=== PATIENT | male | born 1965 | race Caucasian/White ===

== ENCOUNTER → 2020-07-26 08:30 | Outpatient (CLI) | payer BC, SELFPAY ==
--- NOTE | ~2020-07-26 | XR_ITS ---
XR lumbar spine 2-3V DATE: 07/26/2020 08:57 INDICATION: Low back pain with left lower extremity radiculopathy TECHNIQUE: AP, lateral, cone-down lateral lumbosacral views COMPARISON: None FINDINGS: There is diffuse osteopenia. There is mild levoscoliosis of the lumbar spine. No fracture or bone destruction or spondylolisthesis. The T12-L5 pedicles are intact. There is moderate degenerative disc disease of the lumbar spine, most prominent at L2-3 and L3-4. The sacroiliac joints are normal. IMPRESSION: Multilevel degenerative disc disease Reviewed, dictated and finalized at location B.
== END ==
PROVIDERS: PCP Physician Assistant; Visit Provider Physician Assistant
DX: M54.16 Radiculopathy, lumbar region (principal); M51.36 Other intervertebral disc degeneration, lumbar region
CPT/HCPCS: 72100

== ENCOUNTER → 2020-08-10 09:45 | Outpatient (CLI) | payer BC, SELFPAY ==
--- NOTE | ~2020-08-10 | MR_ITS ---
EXAMINATION: MR lumbar spine wo con DATE: 08/10/2020 10:29 INDICATION: Chronic low back pain. Left leg pain. TECHNIQUE: Magnetic resonance imaging (MRI) of the lumbar spine was performed without intravenous con trast. Sequences included sagittal T2-weighted FSE, sagittal T2-weighted FS FSE, sagittal T1-weighted FSE, and axial T2-weighted FSE. COMPARISON: Lumbar spine MRI 06/08/2017 FINDINGS: There is 7 degrees levocurvature of lumbar spine. There is 3 mm retrolisthesis of L2 on L3 and L3 on L4. There is a chronic left-sided L5 pars defect. There are Schmorl's nodes at multiple lev els. There is mild chronic height loss of L5 vertebral body. There is mildly decreased disc height fr om L2-L3 through L5-S1. The distal spinal cord signal intensity is normal. The conus medullaris is at L1-L2. The following disc levels are specifically discussed: L1-L2: The disc does not extend beyond the endplate margin. There is mild right and moderate left fac et joint osteoarthritis. There is no neural foraminal stenosis. There is no central canal stenosis. L2-L3: The disc is bulging and has an annular fissure. There is moderate right and mild left facet saroj int osteoarthritis. There is moderate right and mild left neural foraminal stenosis. There is mild ce ntral canal stenosis. L3-L4: The disc is bulging and has an annular fissure. There is mild bilateral facet joint osteoarthr itis. There is moderate right and mild left neural foraminal stenosis. There is mild central canal st enosis. L4-L5: The disc is bulging as an annular fissure. There is moderate bilateral facet joint osteoarthri tis. There is mild right and moderate left neural foraminal stenosis. There is mild central canal antelmo nosis. L5-S1: The disc is bulging and has an annular fissure. There is moderate right and severe left facet joint osteoarthritis. There is mild bilateral neural foraminal stenosis. There is mild central canal stenosis. IMPRESSION: 1. Moderate lumbar spondylosis, stable from 06/08/2017. 2. Chronic left L5 pars defect. Reviewed, dictated and finalized at location A.
== END ==
PROVIDERS: Visit Provider Physician Assistant
DX: M47.26 Other spondylosis with radiculopathy, lumbar region (principal)
CPT/HCPCS: 72148

== ENCOUNTER → 2021-10-07 07:23 | Outpatient (CLI) | payer BC, SELFPAY ==
--- NOTE | ~2021-10-07 | MR_ITS ---
EXAMINATION: MR knee LT wo con DATE: 10/07/2021 08:42 INDICATION: Left knee pain TECHNIQUE: Magnetic resonance imaging (MRI) of the left knee was performed without intravenous contra st. Sequences included coronal PD-weighted FSE, coronal PD-weighted FS FSE, sagittal T2-weighted FSE , sagittal PD-weighted FS FSE and axial PD weighted fat saturated FSE. COMPARISON: None. FINDINGS: Medial compartment: Complex tear extending along the inferior articular surface of the body and posterior horn of the med ial meniscus. This includes a couple displaced meniscal flaps. The larger meniscal flap originating f rom the posterior horn is flipped laterally and extends cephalad between the lateral margin of the ce ntral weightbearing medial femoral condyle and the posterior cruciate ligament. The second smaller me niscal flap extends cephalad from the meniscal body along side the medial margin of the anterior weig htbearing medial femoral condyle. There is prominent focal marrow edema in the adjacent medial femora l condyle which may represent stress reaction related to altered stress distribution resulting from t he meniscal flap. There is small amount of residual tearing along the inferior articular surface of t he nondisplaced portion of the body and posterior horn. Articular cartilage is normal. Lateral compartment: Lateral meniscus is normal. Articular cartilage is normal. Patellofemoral compartment: Small region of deep chondral fissuring with tiny focus of underlying increased marrow signal at the junction of the medial and odd patellar facets. Remainder of the cartilage in the patellofemoral comp artment is normal. Ligaments and tendons: Anterior and posterior cruciate ligaments are normal. The medial collateral ligament and fibular chantell ateral ligament complex are normal. The extensor mechanism is normal. The visualized medial and later al hamstring tendons as well as the iliotibial band are normal. Fluid: Physiologic amount of fluid in the joint space. No loose osteochondral bodies identified. Osseous/other: Normal marrow signal aside from the previously noted small foci of increased subarticular signal at t he patella and medial femoral condyle. No fracture or pathologic marrow replacing process. IMPRESSION: 1. Complex medial meniscal tear including a couple displaced meniscal flaps, one of which arising fro m the body appears to result in small region of likely stress reaction to altered stress distribution on the medial rim of the anterior weightbearing medial femoral condyle. 2. Small deep chondral fissure at the junction of the medial and odd patellar facets. Cartilage is ot herwise relatively preserved throughout the knee. Reviewed, dictated and finalized at location A. RNATIONAL REPRESENTATIVE IMPRESSION: 1. Complex medial meniscal tear including a couple displaced meniscal flaps, on e of which arising from the body appears to result in small region of likely st ress reaction to altered stress distribution on the medial rim of the anterior weightbearing medial femoral condyle. 2. Small deep chondral fissure at the junction of the medial and odd patellar f acets. Cartilage is otherwise relatively preserved throughout the knee.
== END ==
PROVIDERS: PCP Physician Assistant; Visit Provider Chiropractor Rehabilitation
DX: S83.242A Other tear of medial meniscus, current injury, left knee, initial encounter (principal)
CPT/HCPCS: 73721

== ENCOUNTER 2022-05-26 16:37 | Emergency (ER) | payer BC, SELFPAY ==
--- NOTE | 2022-05-26 16:42 | ED.EAR ---
HPI - Ear Problem General Chief complaint: Ear Stated complaint: ear pain Time Seen by Provider: 05/26/22 16:55 Source: patient and RN notes reviewed Mode of arrival: ambulatory Limitations: no limitations History of Present Illness HPI Narrative: 56-year-old male presents with concern for hearing, feeling of his ears being clogged. He reports left ear pain and feeling clogged started 2 weeks ago, the right started yesterday. He reports decreased hearing. Reports he started taking amoxicillin that his had. He denies nasal congestion, rhinorrhea sore throat, fever. MD Complaint: ear pain Related Data Allergies Allergy/AdvReac Type Severity Reaction Status Date / Time No Known Allergies Allergy Verified 05/26/22 16:53 Review of Systems Review of Systems: CONSTITUTIONAL: Denies malaise, chills, sweats, or fever. EYES: Denies visual changes, redness, or discharge. ENT: Denies rhinorrhea, congestion, sinus pain, and sore throat. Reports bilateral ear pain and fullness CARDIOVASCULAR: Denies chest pain, palpitations, or edema. RESPIRATORY: Denies cough. Denies dyspnea. GASTROINTESTINAL: Denies abdominal pain, nausea, vomiting, diarrhea SKIN: Denies rash or itching. MUSCULOSKELETAL: Denies myalgia. NEUROLOGIC: Denies headache. All systems reviewed & are unremarkable except as noted in HPI and below PMFSH Social History Social History (Updated 12/26/20 @ 15:07 by Reva Miles MA) Smoking packs per day: 0.5 Smoking cigarettes per day: 10.0 Smoking status: Current every day smoker Alcohol intake: current Substance use: never Comments At time of signature, agree with nursing past medical, surgical, social and family history. There is no relevant family history pertinent to the presenting complaint Exam Narrative: GENERAL: Well-appearing, well-nourished, and in no acute distress. HEAD: Normocephalic EYES: PERRLA, conjunctivae clear ENT: Nares clear, turbinates edematous, clear discharge. Mucous membranes moist. Left TM appears to have chronic perforation, TM white with slight erythema, right TM not visible due to excess cerumen, no tragal tenderness. Oropharynx not erythematous without lesions. Tonsils not enlarged and without exudate, no drooling, no hoarseness, no trismus, uvula midline. NECK: Supple. No lymphadenopathy CHEST: Clear to auscultation, breath sounds equal. No wheezing, rhonchi, rales, or stridor. No respiratory distress, speaks in full sentences. HEART: Regular rate and rhythm. No murmur heard. SKIN: Warm, dry, no rash. NEURO: Alert and oriented x3. PSYCH: Normal mood and affect Course Course Emergency Course: Patient is aware of diagnosis, understands and agrees to treatment plan. Anticipatory guidance given. Patient agrees to follow-up as directed and is aware of reasons to seek care at the emergency department. Portions of this record may have been created with voice recognition software Level of Care: Express Care Visit Vital Signs Vital signs: Reviewed. Procedures Ear Wax Removal Right Ear: Ear Wax Removal Date: 05/26/22 Ear Wax Removal Time: 17:05 Cerumenolytic Used: other (1:1 water and hydrogen peroxide) Results: Re-examined: cerumen removed completely TM Examination: other (TM appears to have a chronic perforation, there is also white and slightly erythematous like the left) Ear Canal Exam: atraumatic Patient Tolerated Procedure: well Complications: no problems Medical Decision Making MDM Narrative Medical decision making narrative: Differential diagnosis considered: Rodriguez virus, strep pharyngitis, allergic rhinitis, upper respiratory tract infection, sinusitis, rhinosinusitis, nasopharyngitis. viral pharyngitis, otitis media, otitis externa, otitis effusion, cerumen impaction, foreign body. Exam findings show no acute concerns or changes; patient is non-toxic appearing and is in no distress. Patient is appropriate for out
[2022-05-26 16:47] VITALS: BP 103/68; PULSE 64; RESP 18; TEMP 36.7; O2SAT 98
== END 2022-05-26 17:28 | disposition home or self-care (01) ==
PROVIDERS: Emergency Provider Nurse Practitioner; PCP Physician Assistant
DX: H61.21 Impacted cerumen, right ear (principal); H66.003 Acute suppurative otitis media without spontaneous rupture of ear drum, bilateral; F17.210 Nicotine dependence, cigarettes, uncomplicated
CPT/HCPCS: 69209; 99213; G0463

== ENCOUNTER 2022-08-05 16:47 | Emergency (ER) | payer BC, SELFPAY ==
[2022-08-05] VITALS (12 sets, daily range): BP systolic 108–135; BP diastolic 62–89; PULSE 74; RESP 14–18; TEMP 36.8; O2SAT 93–97
--- NOTE | ~2022-08-05 | CT_ITS ---
EXAMINATION: CT chst ab pel mary lou lum wo DATE: 08/05/2022 17:30 INDICATION: Chest pain TECHNIQUE: Computed tomography (CT) of the chest, abdomen, pelvis, thoracic spine and lumber spine wa s performed without intravenous contrast. Automated exposure control and iterative reconstruction veronica hnique were employed. The dose-length product was 1170.28 mGy-cm. COMPARISON: CT abdomen pelvis 02/03/2012. FINDINGS: CHEST: No thoracic aortic injury. No mediastinal hematoma. No pericardial effusion. Emphysematous changes. Bilateral dependent atelectasis and scarring, greater in the right lung base. No acute lung injury. No pneumothorax. Trace right pleural effusion. ABDOMEN/PELVIS: No high-grade solid organ injury. Right liver lobe hemangioma. No evidence of bowel or mesenteric injury. No free fluid or free air. No retroperitoneal hematoma. Pelvic contents are atraumatic. MUSCULOSKELETAL (excluding spine): Mildly displaced fractures of the right posterior lateral eighth through 10th ribs. THORACIC SPINE: Mild scoliosis. No fracture or traumatic malalignment of the thoracic spine. No severe central canal or neural foraminal narrowing. Mild multilevel degenerative disc disease. LUMBAR SPINE: Mild scoliosis. No fracture or traumatic malalignment of the lumbar spine. No severe central canal st enosis. Severe right L3-4 neural foraminal narrowing. Chronic left L5 pars defect. L4-5 spinous proce ss fusion. Bilateral SI joint fusion. Multilevel moderate degenerative disc disease. IMPRESSION: Mildly displaced right posterior lateral eighth through 10th rib fractures. Trace right pleural effus ion. Adjacent right lower lobe atelectasis. No additional acute process detected in the chest, abdome n, pelvis, thoracic spine, or lumbar spine. Evaluation for solid organ or vascular injury is limited without contrast. Reviewed, dictated and finalized at location K. IMPRESSION: Mildly displaced right posterior lateral eighth through 10th rib fractures. Tra ce right pleural effusion. Adjacent right lower lobe atelectasis. No additional acute process detected in the chest, abdomen, pelvis, thoracic spine, or lumba r spine. Evaluation for solid organ or vascular injury is limited without contr ast.
[2022-08-05] MEDS: HYDROmorphone HCL INJ (*CRX) 1 MG/ML SYR IV PUSH (17:02)
--- NOTE | 2022-08-05 17:20 | WC.ED.TRAUMA ---
HPI - Trauma General Chief Complaint: Fall Stated Complaint: bruised/fx rips Time Seen by Provider: 08/05/22 16:51 History of Present Illness HPI narrative: 57-year-old male presents emergency room for evaluation of right-sided chest/rib pain. Patient states on Wednesday he was at a wedding, taking pictures. 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 Patient states that he has been experiencing shortness of breath difficulty breathing and tenderness to palpation on the right side of his ribs. Patient states he was seen at an emergency room while in [place], where they diagnosed him with a rib contusion/possible fracture. Patient was sent home with ibuprofen and prednisone. Patient states he is receiving no relief from his symptoms. Related Data Allergies Allergy/AdvReac Type Severity Reaction Status Date / Time No Known Allergies Allergy Verified 08/05/22 16:59 Review of Systems Review of Systems: CONSTITUTIONAL: Denies fever, chills, or sweats. EYES: Denies visual changes, redness, or discharge. ENT: Denies rhinorrhea, congestion, sore throat, or otalgia. CARDIOVASCULAR: Denies chest pain, palpitations, or edema. RESPIRATORY: Denies cough or dyspnea. GASTROINTESTINAL: Denies abdominal pain, nausea, vomiting, or diarrhea. GENITOURINARY: Denies dysuria or hematuria. SKIN: Denies rash or itching. MUSCULOSKELETAL: Reports right-sided rib pain NEUROLOGIC: Denies headache, numbness, dizziness, or weakness. PSYCHIATRIC: Denies anxiety or depression. [facility] Social History Social History Smoking packs per day: 0.5 Smoking cigarettes per day: 10.0 Smoking status: Current every day smoker Alcohol intake: current Substance use: never Exam Narrative: GENERAL: Well-appearing, well-nourished, no physical limitations, and in no acute distress. HEAD: Normocephalic, atraumatic. EYES: Conjunctivae normal, PERRLA and EOMI. CHEST: Clear to auscultation. No respiratory distress. No wheezes rales or rhonchi. No tenderness. HEART: Regular rate and rhythm. No murmur heard. Normal peripheral pulses. BACK: Exquisite tenderness to the right posterior lateral rib cage. No obvious flail chest. No ecchymosis or soft tissue swelling noted. EXTREMITIES: Normal range of motion. No edema. No clubbing or cyanosis SKIN: Warm, dry, no rash. No noted wounds NEURO: No focal deficits. Alert and oriented x3. MAEW. CN's II-XI intact bilaterally, normal gait PSYCH: Cooperative. Normal mood and affect. Course Vital Signs Vital signs: Vital Signs Temperature 36.8 C 08/05/22 16:54 Pulse Rate 74 08/05/22 16:54 Respiratory Rate 18 08/05/22 16:54 Blood Pressure 135/89 08/05/22 16:54 Pulse Oximetry 97 08/05/22 16:54 Oxygen Delivery Room Air 08/05/22 16:54 Temperature 36.8 C 08/05/22 16:54 Pulse Rate 74 08/05/22 16:54 Respiratory Rate 18 08/05/22 16:54 Blood Pressure 120/73 08/05/22 18:16 Pulse Oximetry 94 08/05/22 18:17 Oxygen Delivery Room Air 08/05/22 16:54 MDM - Trauma Imaging Data Radiologist's impression: Impressions Chest/Abdomen/Pelvis/Spine CT 08/05/22 17:43 IMPRESSION: Mildly displaced right posterior lateral eighth through 10th rib fractures. Trace right pleural effusion. Adjacent right lower lobe atelectasis. No additional acute process detected in the chest, abdomen, pelvis, thoracic spine, or lumbar spine. Evaluation for solid organ or vascular injury is limited without contrast. Discharge Plan Discharge Clinical Impression: Fracture, ribs Patient Disposition: Home, Self-Care Condition: Stable Instructions: Antibiotic Form, Rib Fracture (ED) Additional Instructions: Continue taking ibuprofen and Flexeril as needed. Follow-up with your primary care physician later this week
== END 2022-08-05 19:00 | disposition home or self-care (01) ==
PROVIDERS: Emergency Provider Nurse Practitioner Family; PCP Physician Assistant
DX: S22.41XA Multiple fractures of ribs, right side, initial encounter for closed fracture (principal); F17.210 Nicotine dependence, cigarettes, uncomplicated; W18.39XA Other fall on same level, initial encounter
CPT/HCPCS: 71250; 72128; 72131; 74176; 96374; 99284; J1170

== ENCOUNTER 2023-01-28 00:13 | Day surgery (SDC) | payer BC, SELFPAY ==
[2023-01-18 10:13] VITALS: BMI 27.6
[2023-01-28 06:37] VITALS: BP 100/70; PULSE 87; RESP 18; TEMP 36.1; O2SAT 97; BMI 27.3
[2023-01-28] MEDS: LACTATED RINGERS 1,000 ML 150 ML IV CONT (06:58)
--- NOTE | 2023-01-28 07:28 | PM.HPGS ---
History of Present Illness History of Present Illness Consent: Risks, benefits, and alternatives have been discussed and questions answered. Patient agrees to proceed with procedure. Chief complaint: hx colon polyps Narrative: Ti Cohen is a 57 year old male Presents for screening colonoscopy. Patient's current weight appetite and bowel movements are normal. Patient denies abdominal pain. He has had no bleeding. Patient has had colon polyps by previous colonoscopies. Most recent colonoscopy is reported 5 years ago. Family history noncontributory. Review of Systems Review of Systems: Review of systems is noncontributory. [facility] Social History Social History Smoking packs per day: 0.5 Smoking cigarettes per day: 10.0 Years smoked: 25 Smoking pack-years: 12.50 Smoking status: Current every day smoker Tobacco type: cigarettes Alcohol intake: current Drinks per week: 6 Substance use: never Substance use type: does not use Living arrangements: with family Spiritual care concerns: No Meds Home Medications and Allergies Home Medications Medication Instructions Recorded Confirmed Type bupropion HCl 150 mg 24 hr tablet, 150 mg PO QAM 01/18/23 01/28/23 History extended release (Wellbutrin XL) rosuvastatin 10 mg tablet 10 mg PO DAILY 01/18/23 01/28/23 History Allergies Allergy/AdvReac Type Severity Reaction Status Date / Time No Known Allergies Allergy Verified 01/28/23 06:47 Vital Signs Vital Signs - 24 hr 01/28/23 06:37 Temperature 96.9 F L Pulse Rate 87 Respiratory Rate 18 Blood Pressure 100/70 Pulse Oximetry 97 Oxygen Delivery Room Air Exam Narrative: Physical exam reveals patient to be alert. Vital signs stable. HEENT exam is unremarkable. Patient is anicteric. Lungs are clear to auscultation and percussion. Heart is without murmur or extra sounds. Abdomen bowel sounds present soft nontender with no organomegaly. Digital external rectal exam is normal. Assessment and Plan Assessment and plan (1) History of colon polyps: Code(s): Z86.010 - Personal history of colonic polyps Status: Acute Assessment and Plan: Patient has a prior history of tubulovillous adenomas polyp in the past. Plan for surveillance colonoscopy now and consider this at 5 year intervals in the future.
--- NOTE | 2023-01-28 07:38 | WPDANESEPPF ---
Anes - Initial Pre Proc Eval Procedure: Operation Date: 01/28/23 08:00 Proposed Procedures p Colonoscopy - Ramos Bañuelos MD Date/Time: 01/28/23 07:38 Surgeon: Ramos Bañuelos MD Pre Op Diagnosis: hx colon polyps Patient Data Age: 57 Gender: M Height: 1.88 m Weight: 96.8 kg Last Vital Signs Temp 96.9 F L 01/28/23 06:37 Pulse 87 01/28/23 06:37 Resp 18 01/28/23 06:37 BP 100/70 01/28/23 06:37 Pulse Ox 97 01/28/23 06:37 O2 Del Method Room Air 01/28/23 06:37 Allergies Allergy/AdvReac Type Severity Reaction Status Date / Time No Known Allergies Allergy Verified 01/28/23 06:47 Home Medications Medication Instructions Recorded Confirmed Type bupropion HCl 150 mg 24 hr tablet, 150 mg PO QAM 01/18/23 01/28/23 History extended release (Wellbutrin XL) rosuvastatin 10 mg tablet 10 mg PO DAILY 01/18/23 01/28/23 History Patient hx anesthesia problems: none Family hx anesthesia problems: none Results Review: All pre-operative results and documents have been reviewed as part of the pre-operative evaluation. [facility] Social History Social History Smoking packs per day: 0.5 Smoking cigarettes per day: 10.0 Years smoked: 25 Smoking pack-years: 12.50 Smoking status: Current every day smoker Tobacco type: cigarettes Alcohol intake: current Drinks per week: 6 Substance use: never Substance use type: does not use Living arrangements: with family Spiritual care concerns: No Anes - Eval Final PreProcedure Day of Procedure 01/28/23 07:38 Patient weight: normal Heart: regular rate and rhythm Lungs: clear to auscultation Airway: Mallampati scale class II Neurological: alert and oriented Last oral intake: >/= 8 hours ASA classification: II Emergent: no Anesthetic plan: proceed Anesthesia type and monitoring: general GIVS and standard monitoring Results Review: All pre-operative results and documents have been reviewed as part of the pre-operative evaluation. Informed Consent: The patient's anesthetic plan and its attendant risks and benefits were discussed with the patient/family/POA. Questions were solicited and answers provided to the satisfaction of the patient/family/POA.
[2023-01-28] MEDS: SIMETHICONE ORAL SUSPENSION 20 MG/0.3 ML 30 ML BOTTLE 0.6 ML IRRIGATION (08:05)
[2023-01-28 08:18] VITALS: BP 86/59; PULSE 64; RESP 15; O2SAT 93
--- NOTE | 2023-01-28 08:18 | SUR.OPER ---
Rectal polyp pulverized per Dr. Bañuelos per hot snare. No specimen obtained.
[2023-01-28 08:28] VITALS: BP 87/52; PULSE 62; RESP 21; O2SAT 95
[2023-01-28 08:38] VITALS: BP 87/52; PULSE 56; RESP 18; O2SAT 99
== END 2023-01-28 08:47 | disposition home or self-care (01) ==
PROVIDERS: PCP Physician Assistant; Visit Provider Internal Medicine Gastroenterology
PROC: 0DJD8ZZ Inspection of Lower Intestinal Tract, Via Natural or Artificial Opening Endoscopic (ICD-10-PCS; CPT 45378; principal; 2023-01-28 08:00)
DX: Z12.11 Encounter for screening for malignant neoplasm of colon (principal); D12.2 Benign neoplasm of ascending colon; K62.1 Rectal polyp; K64.8 Other hemorrhoids; F17.210 Nicotine dependence, cigarettes, uncomplicated
CPT/HCPCS: 45385; 88305; J2704; J7120